=== PATIENT | male | born 1930 | race Caucasian/White ===

== ENCOUNTER 2019-05-28 21:06 | Inpatient (IN) ==
[2019-05-28] MEDS ORDERED: ASPIRIN PO ONE (21:21)
--- NOTE | 2019-05-28 21:25 | EKG Report ---
Test Performed on : 05/28/2019 9:14:54 PM Test Reason : chest pain Blood Pressure : / mmHG Vent. Rate : 068 BPM Atrial Rate : 068 BPM P-R Int : 140 ms QRS Dur : 074 ms QT Int : 404 ms P-R-T Axes : 082 -49 007 degrees QTc Int : 429 ms Sinus rhythm. with premature atrial complexes. Left axis deviation Pulmonary disease pattern Nonspecific ST abnormality Abnormal ECG When compared with ECG of 23-JUN-2016 19:54, premature ventricular complexes. are no longer present Nonspecific T wave abnormality no longer evident in Lateral leads Unconfirmed Result
[2019-05-28 21:55] LABS: BASO# 0.02 X1000 (0.0-0.2); BASO% 0.2 % (0.0-0.8); EOS# 0.06 X1000 (0.0-0.7); EOS% 0.7 % (0.0-10.0); HEMATOCRIT 38.3 % (42.0-52.0); HEMOGLOBIN 11.3 g/dL (14.0-18.0); IMM GRAN# 0.02 X1000 (0.0-0.04); IMM GRAN% 0.2 % (0.0-0.5); LYMPH# 1.52 X1000 (1.2-3.4); MCH 26.5 PG (27-31); MCHC 29.5 g/dL (33-37); MCV 89.9 FL (81-99); MONO% 7.8 % (1.7-9.3); MPV 9.2 FL (7.4-10.4); NEUT# 6.62 X1000 (1.4-6.5); NEUT% 74.1 % (42.2-75.2); PLT 312 X1000 (130-400); RBC 4.26 XMIL (4.7-6.1); RDW 19.4 % (11.5-14.5); WBC 8.94 X1000 (4.8-10.8)
[2019-05-28] MEDS ORDERED: ZOFRAN IV ONE (21:57)
[2019-05-28] MEDS ORDERED: MORPHINE IV ONE (21:57)
[2019-05-28] MEDS ORDERED: DECADRON IM ONE (21:57)
[2019-05-28] MEDS ORDERED: TORADOL IV ONE (21:57)
[2019-05-28 22:08] LABS: INR 0.87; PROTIME 12.2 Seconds (11.0-16.0)
[2019-05-28 22:09] LABS: PTT 24.8 Seconds (22.3-41.8)
--- NOTE | 2019-05-28 22:09 | Diag Imaging Result Doc PS360 ---
EXAM: CHEST-PORTABLE - 05/28/2019 HISTORY: CP TECHNIQUE: Portable chest COMPARISON: 06/23/2016 FINDINGS: Heart size appears normal. There is mild tortuosity of the thoracic aorta. There are stable small right midlung granuloma from old granulomatous disease. There is a new somewhat irregular opacity at the right midlung granuloma. This may represent small area of infiltrate or atelectasis. The remainder of the lungs appear clear. There is no pleural effusion or pneumothorax identified. IMPRESSION: Somewhat irregular opacity at right midlung, possibly representing small area of infiltrate or atelectasis. Follow-up is recommended. Electronically signed by Jw Castro 05/28/2019 10:06 PM
[2019-05-28 22:20] LABS: AGAP 14; ALBUMIN 3.8 g/dL (3.5-5.0); ALKALINE PHOSPHATASE 127 U/L (32-122); BUN 11 mg/dL (8-22); CALCIUM 8.9 mg/dL (8.8-10.2); CHLORIDE 98 mmol/L (98-107); CK PROFILE 36 U/L (24-204); COSMO 277; CREATININE 0.8 mg/dL (0.7-1.2); ESTIMATED GFR > 60; GLUCOSE 104 mg/dL (70-104); GOT 29 U/L (10-34); GPT 19 U/L (10-44); POTASSIUM 4.6 mmol/L (3.5-5.1); SODIUM 139 mmol/L (136-145); TCO2 27 mmol/L (25-35); TOTAL PROTEIN 6.4 g/dL (6.3-8.3)
--- NOTE | 2019-05-29 00:12 | PROVIDER DOCUMENTATION ---
This chart was entered by Maria Alejandra Liu Scribe, acting as scribe for Juan R Selby MD. HPI-Chest Pain - General Chief Complaint: Chest Pain Stated Complaint: CHEST PAIN Time Seen by Provider: 05/28/19 21:39 Source: patient, family ( and [id number]) Allergies/Adverse Reactions: Patient Allergies Allergy/AdvReac Type Severity Reaction Status Date / Time No Known Allergies Allergy Verified 05/08/16 16:09 Home Medications: Home Medication List Medication Instructions Recorded Confirmed Last Taken Type Prednisone 20 mg PO DAILY #30 tab 04/13/17 Unknown Rx - History of Present Illness-CP Location: reports: shoulder, back, other (upper part of chest) Chest Pain Radiation: reports: neck Quality of Pain: reports: sharp (with movement), tightness Severity in ED: moderate Onset/Duration: abrupt, 1-3 hours ago, this evening Timing: still present, constant, getting worse Context/Activities at Onset: reports: rest Modifying Factors: improves with: lying down. worse with: movement, palpation Associated Symptoms: reports: back pain. denies: fever/chills, nausea, shortness of breath, vomiting Nitro Today/Relief: no nitro taken today Aspirin Treatment Today: 325 mg x 1, provided by ED Similar Symptoms Previously?: No Recently Seen Here or By Another Healthcare Provider: No Review of Systems - Adult - REVIEW OF SYSTEMS - ADULT Constitutional: denies: chills, fever Eyes: reports: no symptoms reported Ears, Nose, Mouth & Throat: reports: no symptoms reported Cardiovascular: reports: chest pain. denies: syncope Respiratory: denies: cough, shortness of breath Gastrointestinal: denies: abdominal pain, diarrhea, nausea, vomiting Genitourinary: reports: no symptoms reported Musculoskeletal: reports: back pain, neck pain Integumentary: reports: no symptoms reported Neurological: denies: dizziness/vertigo, headache/migraines Psychiatric: reports: no symptoms reported Endocrine: reports: no symptoms reported Hematologic/Lymphatic: reports: no symptoms reported Allergic/Immunologic: reports: no symptoms reported All Other Systems: Reviewed and Negative Past History - Adult - PAST MEDICAL HISTORY-ADULT Review of Records: reports: Nursing Assessment Review, Medications Reviewed, Social history reviewed & non-contributory. Major Childhood Illnesses: reports: denies history Cardiovascular: reports: A-Fib Respiratory: reports: denies history Gastrointestinal: reports: denies history Genitourinary: reports: prostate cancer Musculoskeletal: reports: arthritis (RA) Neurological: reports: denies history Endocrine/Immune: reports: denies history Other Conditions: reports: denies history - IMMUNIZATION STATUS Childhood Immunizations: See Nurse Assessment Flu Vaccine: See Nurse Assessment - FAMILY HISTORY Family History: reviewed, not pertinent - SOCIAL HISTORY Smoking: quit less than 1 year Substance Use: denies Living Situation: family () Physical Exam-General - PHYSICAL EXAM-ADULT Initial Vital Signs Reviewed: Yes - CONSTITUTIONAL General Appearance: appears well, alert, mild distress, thin - EYES Eyes: PERRL/EOMI, pink conjunctivae - HEAD, EARS, NOSE, MOUTH & THROAT HENMT: normocephalic/atraumatic, moist mucous membranes, normal ENT inspection, TMs normal - NECK Neck: tender lateral (bilateral) - RESPIRATORY Respiratory: lungs clear, normal breath sounds, no pleuratic chest pain, no respiratory distress, no accessory muscle use - CARDIOVASCULAR Cardiovascular: normal peripheral pulses, regular rate, rhythm, no edema, no gallop, no JVD, no murmur - GASTROINTESTINAL (ABDOMEN) Abdominal Exam: normal bowel sounds, non tender, soft, no organomegaly, no pulsatile mass - LYMPHATIC Lymphatic: no adenopathy - MUSCULOSKELETAL Back Exam: other (tenderness across shoulder blades with palpation and to touch) Extremity: normal gait, normal inspection, no pedal edema, no calf tenderness, normal capillary refill, tenderness (shoulder tender with palpation). negative: normal range of motion - SKIN Integumentary: normal color, normal turgor, warm/dry - NEUROLOGIC Neurologic: grossly normal - PSYCHIATRIC Psych/Mental Status: normal thought content, normal thought process, oriented x 3, anxious - HEART Score HEART Score: History: Moderately Suspicious HEART Score: ECG: Non-Specific Repolarization Disturbance/LBBB/PM HEART Score: Age: > or = 65 Years HEART Score: Risk Factors for Atherosclerotic Disease: 1 or 2 Risk Factors HEART Score: Troponin: < or = Normal Limit Total HEART Score:: 5 Progress - PLAN OF CARE/RESULTS Progress/Plan/Lab Results: Vital Signs - 8 hr 05/28/19 21:17 05/28/19 23:25 Temperature 98.0 F 98.3 F Pulse Rate 70 69 Respiratory Rate 17 17 Blood Pressure 151/81 127/60 O2 Sat by Pulse Oximetry 100 99 Laboratory Results - last 24 hr 05/28/19 05/28/19 05/28/19 21:37 21:37 21:37 WBC RBC Hgb Hct MCV MCH MCHC RDW Std Deviation Plt Count MPV Immature Gran % (Auto) Neut % (Auto) Lymph % (Auto) Ocean % (Auto) Eos % (Auto) Baso % (Auto) Immature Gran # (Auto) Neut # (Auto) Lymph # (Auto) Ocean # (Auto) Eos # (Auto) Baso # (Auto) PT INR PTT (Actin FS) Sodium 139 Potassium 4.6 Chloride 98 Carbon Dioxide 27 Anion Gap 14 BUN 11 Creatinine 0.8 Estimated GFR/1.73 m2 > 60 BUN/Creatinine Ratio 14 Glucose 104 Calculated Osmolality 277 Uric Acid Calcium 8.9 Total Bilirubin 0.20 AST 29 ALT 19 Alkaline Phosphatase 127 H Creatine Kinase 36 Troponin T High Sens 18 Xks-A-Dqtmaslfoja Pept 785 H Total Protein 6.4 Albumin 3.8 Globulin 3.0 Albumin/Globulin Ratio 1.0 05/28/19 05/28/19 05/28/19 21:37 21:37 21:37 WBC 8.94 RBC 4.26 L Hgb 11.3 L Hct 38.3 L MCV 89.9 MCH 26.5 L MCHC 29.5 L RDW Std Deviation 19.4 H Plt Count 312 MPV 9.2 Immature Gran % (Auto) 0.2 Neut % (Auto) 74.1 Lymph % (Auto) 17.0 L Ocean % (Auto) 7.8 Eos % (Auto) 0.7 Baso % (Auto) 0.2 Immature Gran # (Auto) 0.02 Neut # (Auto) 6.62 H Lymph # (Auto) 1.52 Ocean # (Auto) 0.70 H Eos # (Auto) 0.06 Baso # (Auto) 0.02 PT 12.2 INR 0.87 PTT (Actin FS) 24.8 Sodium Potassium Chloride Carbon Dioxide Anion Gap BUN Creatinine Estimated GFR/1.73 m2 BUN/Creatinine Ratio Glucose Calculated Osmolality Uric Acid 4.1 Calcium Total Bilirubin AST ALT Alkaline Phosphatase Creatine Kinase Troponin T High Sens Ais-O-Xxuumjiklih Pept Total Protein Albumin Globulin Albumin/Globulin Ratio Orders Category Date Time Status Cardiac Monitoring DIRECTED Care 05/28/19 21:22 Active Oxygen Therapy- ED Nursing DIRECTED Care 05/28/19 21:22 Active Saline Loc NOW Care 05/28/19 21:22 Active CERVICAL SPINE COMPLETE [RAD] Stat Exams 05/28/19 21:55 Taken CHEST-PORTABLE [RAD] Stat Exams 05/28/19 21:41 Completed SHOULDER-LEFT [RAD] Stat Exams 05/28/19 21:55 Taken SHOULDER-RIGHT [RAD] Stat Exams 05/28/19 21:55 Taken CBC WITH ELECTRONIC DIFF [HEME] Stat Lab 05/28/19 21:37 Completed CK PROFILE [SP CHEM] Stat Lab 05/28/19 21:37 Completed COMPREHENSIVE METABOLIC PANEL [CHEM] Stat Lab 05/28/19 21:37 Completed PRO B-NATRIURETIC PEPTIDE Stat Lab 05/28/19 21:37 Completed PROTIME WITH INR [COAG] Stat Lab 05/28/19 21:37 Completed PTT [COAG] Stat Lab 05/28/19 21:37 Completed TROPONIN T HIGH SENSITIVITY Stat Lab 05/28/19 21:37 Completed URIC ACID [CHEM] Stat Lab 05/28/19 21:37 Completed Aspirin Med 05/28/19 21:21 Discontinued 325 mg PO NOW ONE Dexamethasone [Decadron] Med 05/28/19 21:57 Discontinued 4 mg IM NOW ONE Ketorolac [Toradol] Med 05/28/19 21:57 Discontinued 15 mg IV NOW ONE Morphine Med 05/28/19 21:57 Discontinued 2 mg IV NOW ONE Ondansetron [Zofran] Med 05/28/19 21:57 Discontinued 4 mg IV NOW ONE CP/SOB/Palp >45 yrs of Age Stat Oth 05/28/19 21:21 Ordered EKG [EKG] Stat Ther 05/28/19 21:22 Draft Result Diagrams: 05/28/19 21:37 05/28/19 21:37 - REASSESSMENT Reassessment #1 Time Reassessed: 00:02 Status: unchanged Reassessment Comment: at bedside discussing POC Reassessment #2 Time Reassessed: 00:06 Status: improving (shoulder and neck pains somewhat better with medications given. family reports CXR at [facility] in Feb 2019 reported as nl.) - EKG 1 Time of EKG reading by physician:: 21:16 EKG Read and Signed by:: Juan R Selby EKG Interpretation (*Must complete 3 of following elements*): Abnormal Rate: 68 Rhythm: Sinus rhythm with premature atrial complexes [place]: left (deviation) ST Wave: non-specific ST changes (abnormality) Comments: Pulmonary disease pattern - XRAY 1 XRAY Study: C-Spine Impression: Normal 2 XRAY: Right XRAY Study: Shoulder Comparison with other Films: no changes 3 XRAY: Left XRAY Study: Shoulder Impression: Normal 4 XRAY Study: Chest Impression: Abnormal (my reading of CXR today compared to 06-23-16 image and appears right upper lobe granuloma and opacities of each apex are new since that image.), See EMR Report (EXAM: CHEST-PORTABLE - 05/28/2019 HISTORY: CP TECHNIQUE: Portable chest COMPARISON: 06/23/2016 FINDINGS: Heart size appears normal. There is mild tortuosity of the thoracic aorta. There are stable small right midlung granuloma from old granulomatous disease. There is a new somewhat irregular opacity at the right midlung granuloma. This may represent small area of infiltrate or atelectasis. The remainder of the lungs appear clear. There is no pleural effusion or pneumothorax identified. IMPRESSION: Somewhat irregular opacity at right midlung, possibly representing small area of infiltrate or atelectasis. Follow-up is recommended. Electronically signed by Jw Castro 05/28/2019 10:06 PM 05/28/[id number] Interpreting Physician: Jw Castro MD Dictated Date/Time: 05/28/192201 cc: Juan R Selby MD; Kvng Juarez MD) - CONSULTS/PCP/HOSPITALIST Notification #1 *Consult/PCP/Hospitalist*: Dr. Rider Time Discussed: 23:53 Consult Disposition: Admit Departure - Departure Date of Disposition Decision: 05/29/19 Time of Disposition Decision: 00:10 DIAGNOSIS: Chest pain, Neck pain, Shoulder pain, Apical lung scarring Disposition: ADMITTED INPATIENT 09 Certified Medical Emergency: Emergent Condition: Stable Referrals and Follow-Ups: Kvng Juarez MD [Primary Care Provider] - - Critical Care Note This patient required my direct & personal management of CC.: No Attestation - Physician/ GERARDO Attestation Patient care was provided by Advanced Practice Provider:: No The physician spent face to face time with patient:: Yes Advanced Practice Provider documentation review:: Supervising physician onsite and consulted in the evaluation and care of this patient. The physician did have a face to face encounter with the patient. This chart was documented by the indicated scribe, (Maria Alejandra Liu, [place]) and accurately reflects the services I performed and decisions made by me, Juan R Selby MD, as attested by the provider's signature.
[2019-05-29] MEDS ORDERED: PROTONIX IV SCH (00:30)
[2019-05-29] MEDS ORDERED: SODIUM CHLORIDE 0.9% INJ SCH (00:30)
[2019-05-29] MEDS ORDERED: MORPHINE IV PRN (02:17)
[2019-05-29] MEDS ORDERED: ZOFRAN IV PRN (02:17)
[2019-05-29] MEDS ORDERED: TYLENOL PO PRN (02:17)
[2019-05-29] MEDS ORDERED: TORADOL IV PRN (02:17)
--- NOTE | 2019-05-29 07:46 | Diag Imaging Result Doc PS360 ---
EXAM: CT THORAX W/CONTRAST INDICATION: CP, OPACITY APEX,GRANULOMA TECHNIQUE: This exam was performed using automated exposure control, adjustment of mA or kV according to patient size, and/or use of iterative reconstruction technique. COMPARISON: None. FINDINGS: There is advanced pulmonary emphysema. There is a 1.5 cm noncalcified nodule in the right upper lobe on image 43 of series 3 that is indeterminate. Although it is possible that it represents an inflammatory nodule, neoplasm cannot be excluded. Based on Fleischner Society criteria, PET scan or at least an initial 3 month follow-up chest CT is recommended. Just inferior and posterior to this nodule there is a smaller 7.3 mm noncalcified nodule. Closer to the apex on image 25 of series 3 there is another 7 mm noncalcified nodule. There is a nonspecific thin-walled cavitary lesion in the right upper lobe on image 37 of series 3 measuring 1.7 cm axially. There is a round calcified granuloma at the periphery of this cavity. There is mild dependent subsegmental atelectasis and/or scarring at the lung bases. There is mild biapical scarring. There is no pleural fluid collection and no pneumothorax. There are a couple of calcified right hilar and mediastinal lymph nodes indicating prior granulomatous disease. There is no evidence of significant mediastinal or hilar lymphadenopathy, otherwise. Limited views of the upper abdomen reveal a large amount of retained debris in the stomach. The upper abdomen is essentially unremarkable, otherwise. There is no evidence of acute osseous abnormality. IMPRESSION: 1.Advanced pulmonary emphysema. 2.Three indeterminate noncalcified nodules in the right upper lobe for which PET CT or at least short-term CT follow-up is recommended. Please see above discussion. 3.Thin-walled cavitary lesion in the right upper lobe. 4.Incidental note made of a large amount of debris in a distended stomach. Electronically signed by Piotr Abreu 05/29/2019 7:44 AM
--- NOTE | 2019-05-29 07:49 | Diag Imaging Result Doc PS360 ---
EXAM: SHOULDER-RIGHT INDICATION: PAIN TECHNIQUE: 3 views COMPARISON: None. FINDINGS: There is no discrete fracture, dislocation, or significant intrinsic osseous lesion. The visualized joint spaces are essentially unremarkable. The surrounding soft tissues are essentially unremarkable. IMPRESSION: No evidence of acute osseous abnormality. Electronically signed by Piotr Abreu 05/29/2019 7:46 AM
--- NOTE | 2019-05-29 07:50 | Diag Imaging Result Doc PS360 ---
EXAM: SHOULDER-LEFT INDICATION: PAIN TECHNIQUE: 3 views COMPARISON: None. FINDINGS: There is probably mild degenerative arthropathy at the AC joint. There is no discrete fracture, dislocation, or significant intrinsic osseous lesion, otherwise. The visualized joint spaces are essentially unremarkable. The surrounding soft tissues are essentially unremarkable. IMPRESSION: No evidence of acute osseous abnormality. Electronically signed by Piotr Abreu 05/29/2019 7:48 AM
--- NOTE | 2019-05-29 07:54 | Diag Imaging Result Doc PS360 ---
EXAM: CERVICAL SPINE COMPLETE INDICATION: pain s/p fall TECHNIQUE: 6 views COMPARISON: None. FINDINGS: There is moderate facet arthropathy at the upper cervical spine with bony foraminal narrowing on the left, at least at C2-3 and C3-4. There are tiny ventral marginal osteophytes at several levels. The intervertebral disc spaces and vertebral body heights appear to be preserved. Otherwise, no discrete fracture, subluxation, or significant intrinsic osseous lesion is identified. IMPRESSION: [id number] degenerative changes. No evidence of acute osseous abnormality. Electronically signed by Piotr Abreu 05/29/2019 7:51 AM
--- NOTE | 2019-05-29 11:46 | Diag Imaging Result Doc PS360 ---
EXAM: CT ANGIOGRM PULMONARY ARTERIES INDICATION: cp TECHNIQUE: This exam was performed using automated exposure control, adjustment of mA or kV according to patient size, and/or use of iterative reconstruction technique. Thin section axial images and 3-D MIPS were obtained. COMPARISON: Conventional contrast-enhanced CT of the thorax performed earlier today. FINDINGS: There is no evidence of pulmonary embolism. There is patchy thoracic aortic atherosclerotic calcification. There is no evidence of thoracic aortic aneurysm or dissection. Otherwise, the chest, including the right upper lobe lung nodules in the right upper lobe thin-walled cavitary lesion, is stable as compared to the conventional CT performed earlier today. The upper abdomen including the debris-filled distended stomach is also stable. IMPRESSION: No evidence of pulmonary embolism. Otherwise, stable CT chest as compared to the conventional CT performed earlier today. Electronically signed by Piotr Abreu 05/29/2019 11:44 AM
[2019-05-29 12:58] VITALS: BP 151/78
--- NOTE | 2019-06-12 09:08 | HISTORY AND PHYSICAL ---
HISTORY OF PRESENT ILLNESS: Tomi Aguilar, an 88-year-old patient of mine, presented to the Emergency Room complaining of chest pain located in his shoulder area, his back, and the upper part of his chest radiating into his neck. It was sharp. According to the physician, with movement there was tightness, moderate. It started 1 to 3 hours prior to presenting and it is still present and constant and seems to be getting worse. It is worsened with movement and palpitations. He reports some associated back pain. He denies fever, chills, nausea, and vomiting. He has not taken any nitro. He did take an aspirin prior to arrival, 325 mg. REVIEW OF SYSTEMS: He denies any fever or chills. He denies any change in visual acuity. Ears, Nose, and Throat: Negative Cardiovascular: See Present Illness: Respiratory: Denies shortness of breath or cough. Gastrointestinal: Denies abdominal pain, diarrhea, nausea, or vomiting. Genitourinary: Not symptomatic. Musculoskeletal: He has some back and neck pain. Skin: No skin rash. Neurological: No dizziness or TIA type symptoms. Psychiatric: Exam is negative. Endo: Negative. Hematological and Lymphatic: No clotting. No bleeding. ALLERGIES: No asthma or wheezing. PAST MEDICAL HISTORY: He has a history of atrial fibrillation, history of prostate cancer, and history of rheumatoid arthritis. SOCIAL HISTORY: He lives with his . He quit smoking less than a year ago per the doctor. PHYSICAL EXAMINATION ON ADMISSION: HEENT: Head was normocephalic. He has a bit of facial asymmetry. Eyes: PERRLA. EOM intact. Conjunctivae negative. NECK: Supple. Bilaterally tender. RESPIRATORY: Lungs are clear. Normal breath sounds. No pleuritic chest pain. No respiratory distress. No accessory muscle use. CARDIOVASCULAR: Regular rhythm and rate. No murmurs, gallops, clicks, or rubs. ABDOMEN: Soft. No hepatosplenomegaly. No CVA tenderness. EXTREMITIES: Negative for clubbing, cyanosis, and edema. NEUROLOGIC: Exam was grossly normal. SKIN: Clear. VITAL SIGNS: At the time of admission his temperature was 98, pulse 70, respiratory rate 17, BP 151/81, and O2 saturation 100%. DIAGNOSTIC DATA: He was seen by Dr. Selby who gave him a heart score of 5. His comp was unremarkable. ALK PHOS was 127. ProBNP was 785. Troponin I sensitivity was 18. Total protein and albumin were normal. CBC was normal. PT was 0.87. Uric acid was 4.1. His EKG showed sinus rhythm with premature atrial complexes, left axis deviation, and nonspecific ST segment changes. X-ray of his cervical spine was normal. X-ray of his right shoulder was normal. X-ray of his left shoulder was normal. X-ray of his chest showed somewhat irregular opacities at the right mid lung possibly representing small areas of infiltrate or atelectasis. Follow up recommended. He was admitted as an inpatient regarding this atypical chest pain and bilateral shoulder pain. MEDICATIONS: His current medications are Prednisone. While in the E.R. he got aspirin 325 mg, dexamethasone 4 mg IM, Toradol 15 mg IV, morphine 2 mg IV, and Zofran 4 mg. ADMITTING DIAGNOSES: 1. Atypical chest pain. 2. History of atrial fibrillation. 3. Rheumatoid arthritis. 4. History of prostate cancer. cc: Kvng Juarez MD
--- NOTE | 2019-06-12 09:37 | DISCHARGE SUMMARY ---
ADMISSION DATE: 05/29/2019 DISCHARGE DATE: 05/29/2019 HISTORY/HOSPITAL COURSE: Tomi Aguilar, an 88-year-old patient of mine, who has a history of prostate cancer, atrial fibrillation, and arthritis presented to the E.R. with some atypical chest pain running down his arms into his back and into his chest. He was seen in the E.R. and admitted. DIAGNOSTIC DATA: His initial chest x-ray showed a somewhat irregular opacity in the right mid lung possibly representing a small area of atelectasis or infiltrate. There were small right mid lung granulomas from old granulomatous disease. He had a cervical spine film that showed mild-to- moderate degenerative changes. There is moderate facet arthropathy at the upper cervical spine with bony foraminal narrowing on the left, at least at C2-3 and C3-4. There were tiny marginal osteophytes at several levels. The intervertebral disk and vertebral body appear to be preserved. Otherwise, no discrete fracture or subluxation or significant intrinsic osseous lesions identified. His right shoulder exam was negative. Left shoulder was negative. CT of the chest showed advanced pulmonary emphysema. There was a 1.5 cm noncalcified nodule in the right upper lobe that was indeterminate. A neoplasm could not be excluded based on the Fleischner Society criteria. PET scan or at least an initial [address] is recommended. Just inferior and posterior to this nodule is a smaller 7.3 mm noncalcified nodule closer to the apex on image 25, series 3. There is another 7 mm noncalcified nodule. There is a nonspecific thin-walled cavitary lesion in the right upper lobe. There is a round calcified granuloma at the periphery of this cavity. There is mild dependent subsegmental atelectasis or scarring in the bases. There is mild apical scarring. There is no pleural fluid collection or pneumothorax. Impression: Advanced pulmonary emphysema, three indeterminate noncalcified nodules in the right upper lobe for which a PET CT or at least a short-term CT followup is recommended. There is a thin-walled cavitary lesion in the right upper lobe. Incidental note of a large amount of debris in the distended stomach. He had a pulmonary angiogram. There was no evidence of pulmonary embolism. There was patchy thoracic aortic atherosclerotic calcification. There was no evidence of thoracic aortic aneurysm or dissection. Otherwise, the chest including the right upper lobe nodules and the right upper lobe thin-walled cavitary lesion is stable compared to a conventional CT performed earlier in the day. The upper abdomen including the debris filled stomach is also stable. Microbiology: None available. Initial CBC: White count was 8,940. Hematocrit was 38.3. That was slightly microcytic. Platelet count was 312. Neutrophils 71%. Lymphocytes 17%. Monos 17.8. Coag: D- dimer was 1.45. Scan was ordered and no emboli were identified. DATA BASE: His electrolytes on admission, 05/28/2019, were normal. BUN 11, creatinine 0.8, potassium 4.6, sodium 139, CO2 27, and chloride 98. GFR was greater than 60. BUN and creatinine ratio was 14. Glucose was 104, uric acid 4.1, calcium 8.9, and total bilirubin 0.2. AST and ALT were normal. ALK PHOS was slightly elevated at 127. ProBNP was slightly elevated at 785. Otherwise, serial CKs and troponins were negative. The patient was ruled out and was not having any symptoms and was discharged and will follow up in the office. DIAGNOSES: 1. Atypical chest pain. 2. Chronic obstructive pulmonary disease. 3. Emphysema with indeterminate nodule. 4. History of prostate cancer. 5. History of rheumatoid arthritis and osteoarthritis. He is being followed by Cardiology in [place]. cc: Kvng Juarez MD
== END 2019-05-29 17:14 | disposition home or self-care (01) | DRG 313 ==
LOC: P.EDIPHOLD 21:06 → P.ED 21:06 → SUATTDRO 05-29 01:02 → OBSVTOIN 05-29 01:02 → P.MEDSURG 05-29 07:11 → P.EDIPHOLD 05-29 12:58
PROVIDERS: ADMIT Internal Medicine; ATTEND Internal Medicine